=== PATIENT | male | born 1985 | race Caucasian/White ===

== ENCOUNTER 2017-05-09 12:02 | Emergency (ER) | payer BC ==
--- NOTE | 2017-05-09 12:06 | UC ---
Elbow Pain - HPI Summary HPI Summary: 31 year old male presents with complains of right elbow pain. - History of Current Complaint Stated Complaint: RIGHT ELBOW PAIN Time Seen by Provider: 05/09/17 12:05 - Allergies/Home Medications Allergies/Adverse Reactions: Allergies Allergy/AdvReac Type Severity Reaction Status Date / Time bee Allergy Swelling Uncoded 05/09/17 12:15 Home Medications: Home Medications Naproxen TAB* [Naprosyn 250 mg TAB*] 250 mg PO Q8H PRN 05/09/17 [History Confirmed 05/09/17] Review of Systems Constitutional: Negative Skin: Negative Eyes: Negative ENT: Negative Respiratory: Negative Cardiovascular: Negative Gastrointestinal: Negative Genitourinary: Negative Motor: Negative Neurovascular: Negative Musculoskeletal: Myalgia, Other: - right lateral elbow pain Neurological: Negative Psychological: Negative All Other Systems Reviewed And Are Negative: Yes Physical Exam Triage Information Reviewed: Yes Eye Exam: Normal ENT Exam: Normal Dental Exam: Normal Neck exam: Normal Neck: Positive: 1 Respiratory Exam: Normal Cardiovascular Exam: Normal Abdominal Exam: Normal Musculoskeletal Exam: Normal Musculoskeletal: Positive: Other: - right lateral elbow pain Neurological Exam: Normal Psychological Exam: Normal Skin Exam: Normal Elbow Pain Course/Dx - Differential Dx/Diagnosis Provider Diagnoses: right lateral epicondylitis Discharge - Discharge Plan Condition: Stable Disposition: HOME Prescriptions: Diclofenac 1% GEL (NF) [Voltaren 1% GEL (NF)] 1 applic TOPICAL TID PRN #1 tube PRN Reason: Pain - Moderate To Severe Meloxicam [Mobic] 7.5 mg PO BID #30 tab Patient Education Materials: Tennis Elbow (ED), Elbow Sprain (ED) Referrals: Jac Finn MD [Medical Doctor] - No Primary Care Phys,NOPCP [Primary Care Provider] -
[2017-05-09 12:15] VITALS: BP 131/69
== END 2017-05-09 12:58 | disposition home or self-care (01) ==
LOC: UCCORT 12:02
DX: M77.11 Lateral epicondylitis, right elbow (principal)
CPT/HCPCS: 99203; G0463

== ENCOUNTER 2017-06-28 16:04 | Emergency (ER) | payer BC ==
[2017-06-28 16:37] VITALS: BP 136/66
--- NOTE | 2017-06-28 16:39 | UC ---
UC General HPI - HPI Summary HPI Summary: EXPOSED TO HAND FOOT AND MOUTH DISEASE BY CHILD LAST WEEK. THREE DAYS OF FEVER, ACHES, DEVELOPING MOUTH SORES WITH FOUL TASTE, UNABLE TO EAT FOODS DUE TO DISCOMFORT. - History of Current Complaint Chief Complaint: UCGeneralIllness Stated Complaint: FEVER,SORES IN MOUTH Time Seen by Provider: 06/28/17 16:14 Hx Obtained From: Patient Onset/Duration: Gradual Onset, Lasting Days, Worse Since - DAILY Onset Severity: Moderate Current Severity: Severe Associated Signs & Symptoms: Positive: Fever. Negative: Back Pain, Cough, Nausea, Palpitations, Syncope, Trauma, Vomiting - Allergy/Home Medications Allergies/Adverse Reactions: Allergies Allergy/AdvReac Type Severity Reaction Status Date / Time bee Allergy Swelling Uncoded 06/28/17 16:16 Home Medications: Home Medications Acetaminophen [Acetaminophen Extra Stren] 1,000 mg PO DAILY 06/28/17 [History Confirmed 06/28/17] PMH/Surg Hx/FS Hx/Imm Hx Previously Healthy: Yes - Surgical History Surgical History: Yes Surgery Procedure, Year, and Place: T&A, ear tubes as child - Family History Known Family History: Negative: Blood Disorder - Social History Occupation: Employed Full-time Lives: With Family Alcohol Use: Rare Substance Use Type: None Smoking Status (MU): Heavy Every Day Tobacco Smoker Cessation Counseling: Patient Advised to Stop Review of Systems Constitutional: Fever, Fatigue Eyes: Negative ENT: Dental Pain, Other - DRAINING MOUTH SORES Respiratory: Negative Cardiovascular: Negative Gastrointestinal: Negative Genitourinary: Negative Motor: Negative Neurovascular: Negative Musculoskeletal: Myalgia Neurological: Negative Psychological: Negative Is Patient Immunocompromised?: No All Other Systems Reviewed And Are Negative: Yes Physical Exam Triage Information Reviewed: Yes Appearance: Well-Nourished, Ill-Appearing, Pain Distress Vital Signs: Initial Vital Signs Temp 100.0 F 06/28/17 16:09 Pulse 92 06/28/17 16:09 Resp 16 06/28/17 16:09 BP 136/66 06/28/17 16:09 Pulse Ox 100 06/28/17 16:09 Vital Signs Reviewed: Yes Eye Exam: Normal Dental: Positive: Percussion Tenderness @ - X 3 = #32, 4, 13, Abscess @ - X 3 = #32, 4, 13, Cellulitis @ - X 3 = #32, 4, 13 Neck exam: Normal Neck: Positive: Supple, Nontender, No Lymphadenopathy Respiratory Exam: Normal Respiratory: Positive: Chest non-tender, Lungs clear, Normal breath sounds, No respiratory distress, No accessory muscle use Cardiovascular Exam: Normal Cardiovascular: Positive: RRR, No Murmur, Pulses Normal Abdominal Exam: Normal Musculoskeletal Exam: Normal Musculoskeletal: Positive: Strength Intact Neurological Exam: Normal Psychological Exam: Normal Skin Exam: Normal Course/Dx - Differential Dx - Multi-Symptom Differential Diagnoses: Metabolic Abnormality, Sepsis Provider Diagnoses: HAND FOOT AND MOUTH DISEASE; DENTAL ABSCESS X 3 = #32, 4, 13 Discharge - Discharge Plan Condition: Stable Disposition: HOME Prescriptions: Amoxicillin/Clavulanate TAB* [Augmentin TAB 875*] 875 mg PO BID #20 tab Patient Education Materials: Dental Abscess (ED), Hand, Foot, and Mouth Disease (ED) Forms: *Work Release Referrals: [facility] [place] [facility] [Outside] No Primary Care Phys,NOPCP [Primary Care Provider] - Additional Instructions: .PRIMARY CARE: There are four major types of clinical preventive care: immunizations, screening , behavioral counseling (sometimes referred to as lifestyle changes), and chemoprevention. All four apply throughout the life span. It is important to establish and to have access to a Primary Care Physician, not only for follow- up regrding acute and chronic problems, but also for preventative care. Images Dental: 1 - HERE 2 - HERE 3 - HERE
== END 2017-06-28 16:41 | disposition home or self-care (01) ==
LOC: UCCORT 16:04
DX: B08.4 Enteroviral vesicular stomatitis with exanthem (principal); K04.7 Periapical abscess without sinus; F17.210 Nicotine dependence, cigarettes, uncomplicated
CPT/HCPCS: 99212; G0463

== ENCOUNTER 2018-02-02 16:30 | Emergency (ER) | payer BC ==
[2018-02-02 16:45] VITALS: BP 133/85
--- NOTE | 2018-02-02 17:13 | UC ---
Lower Extremity/Ankle HPI - HPI Summary HPI Summary: Patient is a 32-year-old male presenting to the with chief complaint of right hip pain which radiates into the groin and down into the right testicle. This pain is worse with ambulation, better with rest. Approximately twice a day he endorses worst pain of his life to the right testicle which he describes as a squeezing sensation, but is up after approximately 1 minute. Symptoms have been present 4 days. He states he lifted a heavy object approximately 2 days prior to the onset of his pain. Endorses some slight swelling to the groin area. Also endorses pain to the right lateral hip. Denies any back pain. Denies any bowel or bladder dysfunction. Denies any history of STDs or possibility of STDs. No abnormal discharge. - History of Current Complaint Chief Complaint: UCLowerExtremity Stated Complaint: RIGHT HIP PAIN Time Seen by Provider: 02/02/18 17:05 Hx Obtained From: Patient Onset/Duration: Sudden Onset Severity Initially: Mild Severity Currently: Mild Pain Intensity: 5 Pain Scale Used: 0-10 Numeric Aggravating Factor(s): Standing, Ambulation Alleviating Factor(s): Rest Able to Bear Weight: No - Risk Factors Gout Risk Factors: Male DVT Risk Factors: Negative Septic Arthritis Risk Factor: Negative - Allergies/Home Medications Allergies/Adverse Reactions: Allergies Allergy/AdvReac Type Severity Reaction Status Date / Time bee Allergy Swelling Uncoded 02/02/18 16:45 Home Medications: Home Medications NK [No Home Medications Reported] 02/02/18 [History Confirmed 02/02/18] PMH/Surg Hx/FS Hx/Imm Hx Previously Healthy: Yes - Surgical History Surgical History: Yes Surgery Procedure, Year, and Place: T&A, ear tubes as child - Family History Known Family History: Positive: Unknown Negative: Blood Disorder - Social History Occupation: Employed Full-time Lives: With Family Alcohol Use: Rare Substance Use Type: None Smoking Status (MU): Heavy Every Day Tobacco Smoker Review of Systems Constitutional: Negative Skin: Negative Respiratory: Negative Cardiovascular: Negative Musculoskeletal: Arthralgia, Myalgia - R hpi pain radiating to the R groin Neurological: Negative Psychological: Negative Is Patient Immunocompromised?: No All Other Systems Reviewed And Are Negative: Yes Physical Exam Triage Information Reviewed: Yes Appearance: Well-Appearing, Well-Nourished Vital Signs: Initial Vital Signs Temp 99.7 F 02/02/18 16:39 Pulse 102 02/02/18 16:39 Resp 18 02/02/18 16:39 BP 133/85 02/02/18 16:39 Pulse Ox 98 02/02/18 16:39 Vital Signs Reviewed: Yes Eye Exam: Normal Eyes: Positive: Conjunctiva Clear Neck: Positive: Supple Respiratory Exam: Normal Respiratory: Positive: Chest non-tender, Lungs clear Cardiovascular Exam: Normal Cardiovascular: Positive: RRR Musculoskeletal Exam: Other - R groin pain Neurological Exam: Normal Neurological: Positive: Alert Psychological Exam: Normal Psychological: Positive: Normal Response To Family Skin Exam: Normal Diagnostics - Radiology No standard instances Xray Interpretation: Positive (See Comments) Radiology Interpretation Completed By: Radiologist - 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 Lower Extremity Course/Dx - Course Course Of Treatment: During the course of treatment, the patient's evaluated for right hip pain which radiates into the right groin. Pain is worse with flexion of the right hip, better with extension. He endorses no bulging or swelling to the area. Denies any testicular pain at this time. Denies any STD history or chance of STDs. Denies any urinary symptoms. X-ray of the right hip obtained. 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 Patient is made aware. - Differential Dx/Diagnosis Differential Diagnosis/HQI/PQRI: Sprain, Strain, Other - Femoral acetabular impingement acetabular labral tear, Osteitis pubis, trochanteric pain syndrome Provider Diagnoses: Groin pain - Physician Notifications Instructed by Provider To: Have Pt Call For Appt. - Dr. Parsons (orthopedics) Discharge - Sign-Out/Discharge Documenting (check all that apply): Discharge - Discharge Plan Condition: Stable Disposition: HOME Patient Education Materials: Groin Pain (ED) Referrals: Henry Parsons MD [Medical Doctor] - No Primary Care Phys,NOPCP [Primary Care Provider] - Additional Instructions: Please follow up with orthopedics as soon as possible. Stay off the extremity as much as possible If you develop testicular pain lasting more than 1 minute - go to the ED immediately If you develop worsening pain, redness any bulging to the inguinal area or the hip - go to the ED Ibuprofen 600mg three times daily Moist heat to the area including hot baths - Billing Disposition and Condition Condition: STABLE Disposition: HOME
--- NOTE | 2018-02-02 17:55 | RAD ---
INDICATION: Right hip pain. COMPARISON: There are no prior studies available for comparison. TECHNIQUE: An AP view of the pelvis and frontal and lateral views of the right hip were obtained. FINDINGS: There is a bony prominence at the femoral head neck junctions bilaterally. This bony configuration would predispose to cam type femoral acetabular impingement. There is mild bilateral secondary osteoarthritic change. No fracture is seen. 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
== END 2018-02-02 18:26 | disposition home or self-care (01) ==
LOC: UCEAST 16:30
DX: R10.31 Right lower quadrant pain (principal); M25.551 Pain in right hip; F17.210 Nicotine dependence, cigarettes, uncomplicated
CPT/HCPCS: 99211; G0463